=== PATIENT | female | born 1995 | race Caucasian/White ===

== ENCOUNTER 2025-10-01 09:49 | Outpatient (AMB) | payer MEDICAID, SELFPAY ==
[2025-10-01 10:03] VITALS: BP 115/75; PULSE 75; RESP 14; TEMP 36.6; O2SAT 98; BMI 36.5
--- NOTE | 2025-10-01 10:03 | OBCLNT_ITS ---
Vital Signs 10/01/25 10:03 Height 1.65 m Height Method Stated Weight 99.564 kg Weight Measurement Method Standing Scale BMI 36.5 BP 115/75 Blood Pressure Source Automatic Cuff Blood Pressure Location Left Upper Arm Position Sitting Respiration 14 Pulse 75 Pulse Source Monitor Temp 97.8 F Temp Source Oral Pulse Oximetry (%) 98 Oxygen Delivery Method Room Air Allergies/Home Meds Allergies & Medications Allergies NKA* Allergy (Uncoded 10/01/25 10:06) Medication Reconciliation No Known Home Medications 12/07/23 [History Confirmed 10/01/25] Intake Visit Data Collection New Patient or Established: Established Patient (seen at [facility] within 3 years) Reason for Visit:: TRANSFER INITIAL CARE Seen by Clinical Staff ONLY (RN/MA): No Wool Grader Required: No Do You Feel Safe at Home: Yes Authorities Contacted: N/A PCP or OBGYN visit in last 3 months: Yes Hx Now: Yes Are you currently on any form of Control: No Last menstrual period: 03/23/25 Pain Present Currently: No Pain Scale Used: Torres-Bhagat/Numerical Pain scale:: 0 Smoking Status Smoking Status: Never smoker Immunizations Flu Vaccine in the Last 12 Months: Yes Flu Vaccine Exclusion Criteria: Already Received Questionnaires Covid-19 Vaccine Questionnaire Has patient been vacinated for Covid-19 Have you been vacinated for Covid-19: Yes PHQ-9 PHQ-2 Over the last 2 weeks, how often have you been bothered by any of the following problems? 1. Little interest or pleasure in doing things: not at all 2. Feeling down, depressed, or hopeless: not at all Total score: 0 PHQ-9 3. Trouble falling or staying asleep, or sleeping too much: Not at all 4. Feeling tired or having little energy: Not at all 5. Poor appetite or overeating: Not at all 6. Feeling bad about yourself - or that you are a failure or have let yourself or your family down: Not at all 7. Trouble concentrating on things, such as reading the newspaper or watching television: Not at all 8. Moving or speaking so slowly that other people could have noticed? - Or the opposite - being so fidgety or restless that you have been moving around a lot more than usual: not at all 9. Thoughts that you would be better off or of hurting yourself in some way: Not at all Total score: 0 Source: Developed by Drs. Rasheed Martinez, Carmen Nagy, [place] and colleagues, with an educational adele from [employer]. Depression screen completed yes Social History Living Situation History Marital Status: Lives With: Family Housing: House Tobacco History Smoking Status: Never smoker Second Hand Smoke Exposure: No Alcohol History Alcohol Intake: Former Alcohol Intake Frequency: holidays/special occasions only Domestic Abuse History Do You Feel Safe at Home: Yes History of Present Illness HPI Narrative ?29 Years old G?3P?2at gestational age 27.3 ?based on last menstrual period of dated?03/23/2025 . 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: Past Medical History Past Medical History: No Hx Renal Disease, No Hx Diabetes Mellitus Type 1 and No Hx Diabetes Mellitus Type 2 OB Initial Visit OB Flowsheet OB Flowsheet Initial Weight: Not Recorded Date -?-?-?-?-?-?-?-?-?-?-?-?- EGA Weight BP Alb Glu CTX Pres Fundal ht FHR Mov Dilation Station Effacement Hx Notes Visit Note 10/01/25 -?-?-?-?-?-?-?-?-?-?-?-?- 27w 3d 99.564 kg 115/75 absent unknown 27 150 active Menstrual History Menstrual reliability: definite Flow: normal Menstrual regularity: regular Monthly: Yes Age at menarche: 9 On control pills at conception: No Associated symptoms (LMP): Denies amenorrhea, nausea, vomiting, fatigue, breast tenderness, urinary frequency, irritability, bloating or other OB History : 6 Para: 2 Hx Total # of Abortions (Spontaneous & Elective): 3 # of Living Children: 2 Delivery History 1st : Child's name: MARCELA date: 12/06/[birth year] sex: female Gestational age at delivery (weeks): 40 Delivery type: weight (lbs): 4535.924 g weight (oz): 56.699 g History of depression before or after : No 2nd : Child's name: TICO date: 12/22/16 sex: female Gestational age at delivery (weeks): 37 Delivery type: weight (lbs): 3175.147 g weight (oz): 56.699 g History of depression before or after : No Infection History & Risk Evaluation History of STDs: none Genetic Screening & History Genetic Screening/Teratology Counseling - Includes patient, baby's father, or anyone in either family with: 1. Patient's age 35 years or older as of estimated date of delivery: No 2. Thalassemia (Jordanian, English, Mediterranean, or Background); MCV less than 80: No 3. Neural Tube Defect (Meningomyelocele, Spina Bifida, or Anencephaly): No 4. Congenital Heart Defect: No 5. Down Syndrome: No 6. Oracio-Sachs (Ashkenazi [place], Cajun, Slovenian [place]): No 7. João Disease (Ashkenazi [place]): No 8. Familial Dysautonomia (Ashkenazi [place]): No 9. Sickle Cell Disease or Trait (): No 10. Hemophilia or other blood disorders: No 11. Muscular Dystrophy: No 12. Cystic Fibrosis: No 13. Nesbit's Chorea: No 14. Mental Retardation/Autism: No 15. Other inherited genetic or chromosomal disorder: No 16. Maternal Metabolic Disorder (EG,TYPE 1 Diabetes, PKU): No 17. Patient or baby's father had a child with defects not listed above: No 18. Recurrent loss or a stillbirth: No 19. Medications (including supplements, vitamins, herbs or otc drugs)/illicit/recreational drugs/alcohol since last menstrual period: No 20. Any other: No Infection History 1. Live with someone with TB or exposed to TB: No 2. Rash or viral illness since last menstrual period: No 3. Hepatitis B,C: No Other (see comments) Source: [employer] Review of Systems Constitutional Constitutional: Denies fatigue Gastrointestinal Gastrointestinal: Denies bloating, Denies nausea and Denies vomiting Genitourinary Genitourinary: Denies amenorrhea and Denies urinary frequency Psychiatric Psychiatric: Denies irritability Endocrine Endocrine: Denies fatigue Office Procedures OBC Clinic LOC & Office Proc's Nursing/Assessment Patient Status: Established Patient OB Clinic Nursing Assessment: Medication Reconciliation, Update PMH in EMR and Vital Signs OB Clinic Coordination of Care: Complex Care and Chronic Disease 1-5, Consent,records obtained, informed consent, Education Simp Pt/Fam, 1 Ins Authorization, Lab and Imaging orders, Results/Orders obtained and Staff clarify orders Special Needs: Heart tones Established Patient Charge Established Patient Point Assignment: 150 Established Patient Point Charge: EP Level 4 (120-155) Assessment & Plan Diagnosis / Problem List (1) Previous section: Status: Acute (2) : Status: Acute Qualifiers: Weeks of gestation: 27 weeks Qualified Code(s): Z3A.27 - 27 weeks gestation of Additional Plan 3 hour GTT / refused Tubal , prior 2 c sections / continue vitamins / received flu vaccine Follow Up: 2 to 3 weeks
== END 2025-10-01 11:05 | disposition home or self-care (01) ==
LOC: HODSOBC 09:49
PROVIDERS: PCP Nurse Practitioner Family; Referring Provider Nurse Practitioner Family; Supervising Provider Obstetrics & Gynecology; Visit Provider Obstetrics & Gynecology
DX: O09.292 Supervision of pregnancy with other poor reproductive or obstetric history, second trimester (principal); O34.219 Maternal care for unspecified type scar from previous cesarean delivery; Z3A.27 27 weeks gestation of pregnancy
CPT/HCPCS: 99214; G0463

== ENCOUNTER 2025-10-24 10:55 | Outpatient (AMB) | payer MEDICAID, SELFPAY ==
[2025-10-24 11:08] VITALS: BP 108/71; PULSE 88; RESP 16; TEMP 36.2; O2SAT 96; BMI 37.2
--- NOTE | 2025-10-24 11:08 | AMB.OBPNC ---
Vital Signs 10/24/25 11:08 Height 1.65 m Height Method Stated Weight 101.321 kg Weight Measurement Method Standing Scale BMI 37.2 BP 108/71 Blood Pressure Source Automatic Cuff Blood Pressure Location Left Upper Arm Position Sitting Respiration 16 Pulse 88 Pulse Source Monitor Temp 97.2 F Temp Source Oral Pulse Oximetry (%) 96 Oxygen Delivery Method Room Air Allergies/Home Meds Allergies & Medications Allergies NKA* Allergy (Uncoded 10/24/25 11:08) Medication Reconciliation blood sugar diagnostic (Blood Glucose Test strips) #10 ea 10/24/25 [Rx] blood-glucose meter #1 ea 10/24/25 [Rx] blood-glucose meter #1 ea 10/24/25 [Rx] lancets #100 ea 10/24/25 [Rx] lancets #100 ea 10/24/25 [Rx] vitamins-iron fumarate 66 mg iron-folic acid 1 mg tablet tab PO 10/24/25 [History Confirmed 10/24/25] Immunizations Immunizations Flu Vaccine in the Last 12 Months: No Flu Vaccine Exclusion Criteria: Refused by Patient Care OB Visit Log OB Flowsheet Initial Weight: Not Recorded Date <del>?</del> EGA Weight BP Alb Glu CTX Pres Fundal ht FHR Mov Dilation Station Effacement Hx Notes Visit Note 10/01/25 <del>?</del> 27w 3d 99.564 kg 115/75 absent unknown 27 150 active 10/24/25 <del>?</del> 30w 5d 101.321 kg 108/71 absent cephalic 30 148 active HARLEY Calculator Estimated Delivery Date Method Current WG Current Estimate 12/28/25 LMP (Certain) 30w 5d Other Estimates 12/28/25 Ultrasound #1 30w 5d Notes Visit Date: 10/24/25 Last Updated by: Alise Sanz MD 29 years old , at 27.3 weeks , good dating and she has had 2 prior c sections / refuses BTL at this time . @ hour GTT at [facility] c/w slightly elevated second hour value, Plan a 3 hour GTT now / diet instructions given / start diet for Diabetes / 2 hour GTT c/w GDM and will start on diet control and sugar log and follow up in 2 weeks / MFM Us c/w growth and No signs of PAS seen / Visit Date: 10/01/25 Last Updated by: Alise Sanz MD 29 years old , at 27.3 weeks , good dating and she has had 2 prior c sections / refuses BTL at this time . @ hour GTT at [facility] c/w slightly elevated second hour value, Plan a 3 hour GTT now / diet instructions given / Labs done 05/11/2025 O positive / RPR, HIV and Hep B negative /GC and CT negative / Rubella immune /Hb is 12.9 and platelets are 258 Plan 3 hpur GTT and CBc and RPR and follow up in 2 to 3 weeks / continue vitamins Office Procedures OBC Clinic LOC & Office Proc's Nursing/Assessment Patient Status: Established Patient OB Clinic Nursing Assessment: Medication Reconciliation, Update PMH in EMR and Vital Signs OB Clinic Coordination of Care: Complex Care and Chronic Disease 1-5, Consent,records obtained, informed consent, Education Simp Pt/Fam, 1 Ins Authorization, Lab and Imaging orders, Results/Orders obtained and Staff clarify orders Special Needs: Heart tones Established Patient Charge Established Patient Point Assignment: 150 Established Patient Point Charge: EP Level 4 (120-155) Assessment & Plan Diagnosis / Problem List (1) Previous section: Status: Acute (2) : Status: Acute Qualifiers: Weeks of gestation: 27 weeks Qualified Code(s): Z3A.27 - 27 weeks gestation of (3) GDM (gestational diabetes mellitus), class A1: Status: Acute Assessment and Plan: 29 years old , at 27.3 weeks , good dating and she has had 2 prior c sections / refuses BTL at this time . @ hour GTT at [facility] c/w slightly elevated second hour value, Plan a 3 hour GTT now / diet instructions given / start diet for Diabetes / 2 hour GTT c/w GDM and will start on diet control and sugar log and follow up in 2 weeks / MFM Us c/w growth and No signs of PAS seen /
== END 2025-10-24 11:24 | disposition home or self-care (01) ==
LOC: HODSOBC 10:55
PROVIDERS: Supervising Provider Obstetrics & Gynecology; Visit Provider Obstetrics & Gynecology
DX: O09.293 Supervision of pregnancy with other poor reproductive or obstetric history, third trimester (principal); O09.893 Supervision of other high risk pregnancies, third trimester; O24.410 Gestational diabetes mellitus in pregnancy, diet controlled; Z3A.30 30 weeks gestation of pregnancy; Z28.21 Immunization not carried out because of patient refusal
CPT/HCPCS: 99214; G0463